=== PATIENT | female | born 1975 | race Caucasian/White ===

== ENCOUNTER 2020-10-07 00:07 | Emergency (ER) | payer OTHER ==
--- NOTE | 2020-10-07 01:09 | ED ---
General Adult HPI - General Chief complaint: Skin/Abscess/Foreign Body Stated complaint: Female Time Seen by Provider: 10/07/20 00:24 Source: patient, RN notes reviewed, old records reviewed Mode of arrival: ambulatory Limitations: no limitations - History of Present Illness Initial comments: 44-year-old female presents to the ER today for evaluation for a rash last weeks between her panus and pain. She reports it's burning overall skin. She reports been trying diaper cream [id number] with no relief. Patient also complains of chronic cough for 3 weeks. She states that she has had no fevers or chills. She reports it keeps her up at night times. She reports she's not follow-up with Dr. diggs if she may be diabetic. She denies any significant weight loss, polydipsia, or polyuria. Denies dysuria. - Related Data Previous Rx's Medication Instructions Recorded Azithromycin [Zithromax] 250 mg PO DIRECTED #6 tab 10/07/20 Fluconazole [Diflucan] 200 mg PO DAILY #7 tab 10/07/20 Nystatin 100,000 Unit/gm Powd 1 applic TOPICAL TID #1 bottle 10/07/20 [Mycostatin Powder] Allergies Allergy/AdvReac Type Severity Reaction Status Date / Time codeine Allergy Rash/Hives Verified 10/07/20 00:17 Penicillins Allergy Rash/Hives Verified 10/07/20 00:17 Review of Systems ROS Statement: Those systems with pertinent positive or pertinent negative responses have been documented in the HPI. ROS Other: All systems not noted in ROS Statement are negative. Past Medical History Past Medical History: Asthma, Fibromyalgia Additional Past Medical History / Comment(s): SVT History of Any Multi-Drug Resistant Organisms: None Reported Past Surgical History: Adenoidectomy, Cholecystectomy, Ear Surgery, Tonsillectomy Additional Past Surgical History / Comment(s): Gastric bypass, D&C Past Psychological History: Anxiety, Depression, PTSD Smoking Status: Current some day smoker Past Alcohol Use History: None Reported Past Drug Use History: None Reported General Exam - General Exam Comments Initial Comments: Alert and oriented 44-year-old female. No distress Limitations: no limitations General appearance: alert, in no apparent distress Head exam: Present: atraumatic, normocephalic, normal inspection Eye exam: Present: normal appearance, PERRL, EOMI. Absent: scleral icterus, conjunctival injection, periorbital swelling ENT exam: Present: normal exam, mucous membranes moist Neck exam: Present: normal inspection. Absent: tenderness, meningismus, lymphadenopathy Respiratory exam: Present: normal lung sounds bilaterally. Absent: respiratory distress, wheezes, rales, rhonchi, stridor Cardiovascular Exam: Present: regular rate, normal rhythm, normal heart sounds. Absent: systolic murmur, diastolic murmur, rubs, gallop, clicks GI/Abdominal exam: Present: soft, normal bowel sounds. Absent: distended, tenderness, guarding, rebound, rigid Extremities exam: Present: normal inspection, full ROM, normal capillary refill, other (Patient has significant bella intertrigo and lower panus and groin.). Absent: tenderness, pedal edema, joint swelling, calf tenderness Back exam: Present: normal inspection Neurological exam: Present: alert, oriented X3, CN II-XII intact Psychiatric exam: Present: normal affect, normal mood Skin exam: Present: warm, dry, intact, normal color. Absent: rash Course Vital Signs 10/07/20 10/07/20 00:11 01:53 Temperature 98.3 F 98.1 F Pulse Rate 75 72 Respiratory 20 16 Rate Blood Pressure 152/82 148/85 O2 Sat by Pulse 100 99 Oximetry Medical Decision Making - Medical Decision Making 44-year-old female presents to the ER today for evaluation for complaints of lanie h in groin revealed. She's had this rash for a few weeks. Patient denies that she'll need oral Diflucan for treatment. Doesn't complain of a chronic cough for the past few weeks as well. Chest x-ray showed questionable opacity perihilar region. Discussed treating the Patient for atypical pneumonia with azithromycin. Advised doing the azithromycin prescription and taking Diflucan. I also advised keeping the areas of skin fold between pannus and groin dry. Discussed using nystatin powder. 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 Disposition Clinical Impression: Cough, Candidiasis, intertriginous Disposition: HOME SELF-CARE Condition: Good Instructions (If sedation given, give patient instructions): Yeast Infection (ED) Additional Instructions: Patient advised to take the antibiotic as prescribed and after this was completed take the oral Diflucan. Keep the area clean and dry and apply the powder to the skin folds. Prescriptions: Fluconazole [Diflucan] 200 mg PO DAILY #7 tab Nystatin 100,000 Unit/gm Powd [Mycostatin Powder] 1 applic TOPICAL TID #1 bottle Azithromycin [Zithromax] 250 mg PO DIRECTED #6 tab Is patient prescribed a controlled substance at d/c from ED?: No Referrals: None,Stated [Primary Care Provider] - 1-2 days Time of Disposition: 01:37
--- NOTE | 2020-10-07 01:15 | XR ---
EXAM: XR Chest, 2 Views CLINICAL HISTORY: ITS.REASON XR Reason: cough TECHNIQUE: Frontal and lateral views of the chest. COMPARISON: No relevant prior studies available. FINDINGS: Lungs: Question subtle perihilar opacities which may be inflammatory or infectious. Pleural space: Unremarkable. Heart: Unremarkable. Mediastinum: Unremarkable. Bones/joints: Unremarkable. IMPRESSION: Question subtle perihilar opacities which may be inflammatory or infectious.
[2020-10-07 01:16] LABS: Glucose,Whole Blood 97 mg/dL (75-99)
[2020-10-07] MEDS ORDERED: AZITHROMYCIN 500 MG TAB PO STA (01:32)
[2020-10-07 01:54] VITALS: BP 148/85; PULSE 72; RESP 16; TEMP 98.1
== END 2020-10-07 01:52 | disposition home or self-care (01) ==
LOC: EC 00:07
DX: B37.9 Candidiasis, unspecified (principal); R05 Cough; F17.200 Nicotine dependence, unspecified, uncomplicated; Z88.0 Allergy status to penicillin; Z88.5 Allergy status to narcotic agent; Z98.84 Bariatric surgery status
CPT/HCPCS: 36415; 71046; 99284

== ENCOUNTER 2020-10-26 00:21 | Emergency (ER) | payer MEDICARE, OTHER ==
[2020-10-26 00:28] VITALS: RESP 18; TEMP 98.2
[2020-10-26] MEDS ORDERED: HYDROmorphone 1 MG/ML 1 ML SYRINGE IM STA (01:05)
[2020-10-26] MEDS ORDERED: IBUPROFEN 800 MG TAB PO STA (01:05)
--- NOTE | 2020-10-26 01:07 | ED ---
Lower Extremity Injury HPI - General Chief Complaint: Extremity Injury, Lower Stated Complaint: Knee pain Time Seen by Provider: 10/26/20 00:24 Source: patient, EMS, RN notes reviewed, old records reviewed Mode of arrival: EMS Limitations: physical limitation - History of Present Illness Initial Comments: This is a 44 year old female to the ED co right knee pain, morbidny obese, no injury, able to ambulate. Patient is complaining of right knee pain. Patient has no fever and history of pain. MD Complaint: knee injury (right) -: days(s) Injury: Knee: Right Type of Injury: blunt Place: home Severity: moderate Severity scale (1-10): 4 Improves With: nothing Worsens With: weight bearing Other Symptoms: loss of consciousness Associated Symptoms: snap/pop sensation Treatments Prior to Arrival: cold therapy - Related Data Previous Rx's Medication Instructions Recorded Azithromycin [Zithromax] 250 mg PO DIRECTED #6 tab 10/07/20 Fluconazole [Diflucan] 200 mg PO DAILY #7 tab 10/07/20 Nystatin 100,000 Unit/gm Powd 1 applic TOPICAL TID #1 bottle 10/07/20 [Mycostatin Powder] Allergies Allergy/AdvReac Type Severity Reaction Status Date / Time codeine Allergy Rash/Hives Verified 10/07/20 00:17 Penicillins Allergy Rash/Hives Verified 10/07/20 00:17 shellfish derived Allergy Rash/Hives Verified 10/26/20 00:30 Review of Systems ROS Statement: Those systems with pertinent positive or pertinent negative responses have been documented in the HPI. ROS Other: All systems not noted in ROS Statement are negative. Past Medical History Past Medical History: Asthma, Fibromyalgia Additional Past Medical History / Comment(s): SVT History of Any Multi-Drug Resistant Organisms: None Reported Past Surgical History: Adenoidectomy, Cholecystectomy, Ear Surgery, Tonsillectomy Additional Past Surgical History / Comment(s): Gastric bypass, D&C Past Psychological History: Anxiety, Depression, PTSD Smoking Status: Current some day smoker Past Alcohol Use History: None Reported Past Drug Use History: None Reported General Exam - General Exam Comments Initial Comments: patient is able to walk Limitations: physical limitation General appearance: alert, in no apparent distress Head exam: Present: atraumatic, normocephalic, normal inspection Eye exam: Present: normal appearance, PERRL, EOMI. Absent: scleral icterus, conjunctival injection, periorbital swelling ENT exam: Present: normal exam, mucous membranes moist Neck exam: Present: normal inspection. Absent: tenderness, meningismus, lymphadenopathy Respiratory exam: Present: normal lung sounds bilaterally. Absent: respiratory distress, wheezes, rales, rhonchi, stridor Cardiovascular Exam: Present: regular rate, normal rhythm, normal heart sounds. Absent: systolic murmur, diastolic murmur, rubs, gallop, clicks GI/Abdominal exam: Present: soft, normal bowel sounds. Absent: distended, tenderness, guarding, rebound, rigid Extremities exam: Present: normal inspection, full ROM, normal capillary refill. Absent: tenderness, pedal edema, joint swelling, calf tenderness Back exam: Present: normal inspection Neurological exam: Present: alert, oriented X3, CN II-XII intact Psychiatric exam: Present: normal affect, normal mood Skin exam: Present: warm, dry, intact, normal color. Absent: rash Course Vital Signs 10/26/20 00:25 Temperature 98.2 F Pulse Rate 81 Respiratory 18 Rate Blood Pressure 151/91 O2 Sat by Pulse 100 Oximetry Medical Decision Making - Medical Decision Making 44 female DF for evaluation right knee pain secondary to osteoarthritis. No injury. X-rays negative patient can be discharged home - Radiology Data Radiology results: report reviewed (X-ray right knee negative for acute dise ase), image reviewed Disposition Clinical Impression: Right knee pain, Osteoarthritis Disposition: ADMITTED IP TO THIS [facility] Condition: Good Instructions (If sedation given, give patient instructions): Knee Pain (ED), Osteoarthritis (ED) Is patient prescribed a controlled substance at d/c from ED?: No Referrals: Jocelyne Canales MD [Primary Care Provider] - 1-2 days
--- NOTE | 2020-10-26 01:34 | XR ---
EXAM: XR Right Knee, 3 Views CLINICAL HISTORY: Pain. TECHNIQUE: Three views of the right knee. COMPARISON: No relevant prior studies available. FINDINGS: Bones/joints: Mild to moderate degenerative spur formation without marked loss of joint space. No evidence of joint effusion. No acute fracture. No dislocation. Soft tissues: Unremarkable. IMPRESSION: No acute findings in the right knee. Mild to moderate degenerative changes.
[2020-10-26] MEDS ORDERED: traMADol 50 MG STARTER PACK 3 TAB BTL PO STA (02:08)
[2020-10-26 02:19] VITALS: BP 166/86; PULSE 80
== END 2020-10-26 02:43 | disposition other institution (70) ==
LOC: SUPCPDRO 00:21 → EC 00:21
DX: M17.11 Unilateral primary osteoarthritis, right knee (principal); F17.200 Nicotine dependence, unspecified, uncomplicated; Z88.0 Allergy status to penicillin; Z88.5 Allergy status to narcotic agent; Z91.013 Allergy to seafood; Z90.49 Acquired absence of other specified parts of digestive tract
CPT/HCPCS: 99285 ×2; 96372 ×2; 73562; J1170

== ENCOUNTER → 2020-12-05 | Outpatient (CLI) | payer MEDICARE, OTHER ==
[2020-12-05 22:48] LABS: Basophils # (A) 0.05 X 10*3/uL (0.00-0.10); Basophils % (A) 0.7 %; Eosinophils # (A) 0.07 X 10*3/uL (0.04-0.35); HCT 39.7 % (37.2-46.3); HGB 12.2 g/dL (12.0-15.0); Lymphocytes # (A) 1.46 X 10*3/uL (0.90-5.00); Lymphocytes % (A) 20.4 %; MCH 28.9 pg (27.0-32.0); MCHC 30.7 g/dL (32.0-37.0); MCV 94.1 fL (80.0-97.0); Mean Platelet Volume 10.3 fL (9.5-12.2); Monocytes % (A) 9.8 %; Neutrophils # (A) 4.87 X 10*3/uL (1.80-7.70); Neutrophils % (A) 67.8 %; Platelet Count 396 X 10*3/uL (140-440); RBC 4.22 X 10*6/uL (4.10-5.20); RDW 13.2 % (11.5-14.5); WBC 7.17 X 10*3/uL (4.50-10.00)
[2020-12-06 02:04] LABS: Erythrocyte Sedimentation Rate 44 mm/Hr (0-20)
[2020-12-06 04:11] LABS: African American GFR (CKD) 78.8 (60.0-200.0); Albumin 4.6 g/dL (3.80-4.90); Albumin/Globulin Ratio 2.19 (1.60-3.17); C Reactive Protein 0.5 mg/dL (0.0-0.8); Calcium 9.1 mg/dL (8.7-10.3); Globulin 2.1 g/dL (1.6-3.3); Potassium 3.9 mmol/L (3.5-5.5); Total Bilirubin 0.3 mg/dL (0.2-1.2); Total Protein 6.7 g/dL (6.2-8.2)
== END | disposition home or self-care (01) ==
LOC: LABWHC1 15:54
PROVIDERS: ATTEND Nurse Practitioner
DX: Z09 Encounter for follow-up examination after completed treatment for conditions other than malignant neoplasm (principal); Z87.19 Personal history of other diseases of the digestive system
CPT/HCPCS: 36415; 80053; 85025; 85652; 86140

== ENCOUNTER 2020-12-12 08:44 | Day surgery (SDC) | payer MEDICARE, OTHER ==
[2020-12-08 11:23] VITALS: BMI 48.2
[~2020-12-12 08:44] MED LIST: LACTATED RINGERS 1,000 ML IV SCH
[2020-12-12 09:16] VITALS: TEMP 97.7
[2020-12-12] MEDS ORDERED: LIDOCAINE 1% (10MG/ML) FOR IV START INTRADERMA ONE (09:20)
[2020-12-12] MEDS ORDERED: PROPOFOL 10 MG/ML 20 ML VIAL IV ONE (09:55)
--- NOTE | 2020-12-12 10:35 | P.PCN ---
Date of Procedure: 12/12/20 Description of Procedure: BRIEF HISTORY: Patient is a 45-year-old female presenting for outpatient colonoscopy for evaluation of a history of ulcerative colitis/personal diseases of the digestive system. She reports prior history of ulcerative colitis treated with mesalamine therapy. She's not been on any maintenance medication since 2019 due to lack of insurance. Last colonoscopy in . Denies any rectal bleeding or change in bowel habits. PROCEDURE PERFORMED: Colonoscopy with biopsy and polypectomy. PREOPERATIVE DIAGNOSIS: History of ulcerative colitis, personal history of diseases of the digestive tract, last colonoscopy . ESTIMATED BLOOD LOSS: Minimal. IV sedation per Anesthesia. PROCEDURE: After informed consent was obtained, the patient, was brought into the endoscopy unit. IV sedation was administered by Anesthesia under continuous monitoring. Digital rectal examination was normal. Initially the Olympus CF-190 flexible video colonoscope was then inserted in the rectum, gradually advanced into the cecum without any difficulty. Careful examination was performed as the scope was gradually being withdrawn. Ileocecal valve and the appendiceal orifice were visualized and appeared normal. Prep was excellent. Mucosa of the cecum, ascending colon, transverse colon, descending colon, sigmoid colon, and rectum appeared normal and a normal-appearing terminal ileum with random biopsies taken of the terminal ileum, right colon, transverse colon, left colon and rectum. A diminutive 3 mm polyp removed from the transverse colon with cold forcep polypectomy. Retroflexion was performed in the rectum and no lesions were seen, low-grade internal hemorrhoids. The patient tolerated the procedure well. IMPRESSION: Normal-appearing colon from rectum to cecum and normal-appearing terminal ileum with random biopsies taken of the terminal ileum, right colon, transverse colon, left colon and rectum. Diminutive 3 mm transverse colon polyp removed with cold forcep polypectomy. Internal hemorrhoids. RECOMMENDATIONS: Findings of this examination were discussed with the patient and her family. Okay to resume diet. Okay to resume medications. Await pathology from biopsies and polypectomy. Patient should follow-up in the clinic in the next 1-2 weeks for results of biopsies. Recommend repeat colonoscopy in 7 years for colon polyp pending pathology from polypectomy.
[2020-12-12 11:07] VITALS: BP 137/81; PULSE 62; RESP 18
== END 2020-12-12 11:30 | disposition home or self-care (01) ==
LOC: ORWHC2ENDO 08:44
PROVIDERS: ATTEND Internal Medicine
DX: D12.3 Benign neoplasm of transverse colon (principal); K51.90 Ulcerative colitis, unspecified, without complications; K64.8 Other hemorrhoids; J45.909 Unspecified asthma, uncomplicated; M79.7 Fibromyalgia; Z72.0 Tobacco use; Z90.49 Acquired absence of other specified parts of digestive tract; Z90.89 Acquired absence of other organs; Z98.890 Other specified postprocedural states; Z79.899 Other long term (current) drug therapy; Z88.5 Allergy status to narcotic agent; Z88.0 Allergy status to penicillin; Z91.013 Allergy to seafood; Z91.09 Other allergy status, other than to drugs and biological substances
CPT/HCPCS: 81025; 88305; 45380; J2704

== ENCOUNTER → 2020-12-27 | Outpatient (CLI) | payer MEDICARE, OTHER ==
--- NOTE | 2020-12-27 12:31 | MR ---
EXAMINATION TYPE: MR brain wo/w con DATE OF EXAM: 12/27/2020 COMPARISON: NONE HISTORY: Pseudotumor. Papilledema both eyes, pseudo tumor cerebri. Abnormal physical exam by ophthalm ologist. TECHNIQUE: Multiplanar, multisequence images of the brain and brainstem is performed without and with IV contras t, utilizing 13.5 mL intravenous Gadavist . FINDINGS: Diffusion weighted images demonstrate no evidence of a recent infarct or other diffusion ab normality. There is mild generalized atrophy over the bilateral frontal and temporal lobes. No hydro cephalus. There are scattered foci of T2 hyperintensity seen throughout the white matter bilaterally. Roughly 20-25 lesions are present. Lesions are nonspecific in appearance and distribution. T2 Star w eighted images show no suspicious intraparenchymal blood product. Midline structures demonstrate normal morphology. The craniocervical junction appears within normal limits. Post contrast images demonstrate no abnormal enhancement. The dural venous sinuses appear pa tent. The visualized sinuses are clear. Symmetric CSF prominence surrounding the optic nerves in the bilateral orbits. The globes are intact bilaterally. IMPRESSION: Symmetric mild surrounding CSF prominence in the optic nerves. No additional MRI findings to suggest pseudotumor cerebri. Mild bilateral frontal and temporal lobe atrophy. Mild to borderline moderate nonspecific white matter changes. No suspicious enhancement.
== END | disposition home or self-care (01) ==
LOC: RADMRIMAIN 10:06
PROVIDERS: ATTEND Ophthalmology
DX: G31.89 Other specified degenerative diseases of nervous system (principal); R90.82 White matter disease, unspecified
CPT/HCPCS: 70553; A9585

== ENCOUNTER 2021-02-06 13:03 | Emergency (ER) | payer MEDICARE, OTHER ==
[2021-02-06 13:13] VITALS: RESP 18
--- NOTE | 2021-02-06 13:14 | ED ---
General Adult HPI - General Source: patient, RN notes reviewed Mode of arrival: ambulatory Limitations: no limitations <David Kendall - Last Filed: 02/06/21 13:11> <Michael Ordonez - Last Filed: 02/06/21 16:42> - General Stated complaint: SOB, cough Time Seen by Provider: 02/06/21 13:11 - History of Present Illness Initial comments: 45-year-old female presents with with chief complaint of shortness of breath cough congestion. Patient states she has not felt well. States that she's had fever cough congestion. Patient states that he has mild nasal congestion. Patient was recently diagnosed with pseudotumor cerebri. Patient states that she's had pain is not out of the usual. Patient had hot and cold flashes. (David Kendall) This is a 45-year-old female presents emergency Department with complaint of cough and fever. Patient states she had a fever starting on the but did not have any symptoms in but since then she's had a bit of a cough and some congestion and complains of a little bit short of breath if she exerts herself. Patient denies any diarrhea. Patient denies any chest pain or palpitations. Patient denies any abdominal pain patient denies nausea vomiting diarrhea. (Michael Ordonez) - Related Data Home Medications Medication Instructions Recorded Confirmed Albuterol Inhaler [Ventolin Hfa 2 puff INHALATION Q4-6H PRN 12/08/20 12/12/20 Inhaler] Ergocalciferol (Vitamin D2) 1,250 mcg PO HUYNH 12/08/20 12/12/20 [Vitamin D2 (50,000 Iu)] Allergies Allergy/AdvReac Type Severity Reaction Status Date / Time adhesive tape Allergy Rash/Hives Verified 02/06/21 13:09 codeine Allergy Rash/Hives Verified 02/06/21 13:09 Penicillins Allergy Rash/Hives Verified 02/06/21 13:09 shellfish derived Allergy Rash/Hives Verified 02/06/21 13:09 Review of Systems ROS Other: All systems not noted in ROS Statement are negative. <David Kendall - Last Filed: 02/06/21 13:11> ROS Other: All systems not noted in ROS Statement are negative. <Michael Ordonez - Last Filed: 02/06/21 16:42> ROS Statement: Those systems with pertinent positive or pertinent negative responses have been documented in the HPI. Past Medical History Past Medical History: Asthma, Fibromyalgia Additional Past Medical History / Comment(s): SVT History of Any Multi-Drug Resistant Organisms: None Reported Past Surgical History: Adenoidectomy, Cholecystectomy, Ear Surgery, T onsillectomy Additional Past Surgical History / Comment(s): Gastric bypass, D&C Smoking Status: Current some day smoker <David Kendall - Last Filed: 02/06/21 13:11> General Exam General appearance: alert, in no apparent distress Head exam: Present: atraumatic, normocephalic, normal inspection Eye exam: Present: normal appearance, PERRL, EOMI. Absent: scleral icterus, conjunctival injection, periorbital swelling ENT exam: Present: normal exam, normal oropharynx, mucous membranes moist Respiratory exam: Present: normal lung sounds bilaterally. Absent: respiratory distress, wheezes, rales, rhonchi, stridor Cardiovascular Exam: Present: regular rate, normal rhythm, normal heart sounds. Absent: systolic murmur, diastolic murmur, rubs, gallop, clicks <David Kendall - Last Filed: 02/06/21 13:11> <Michael Ordonez - Last Filed: 02/06/21 16:42> - General Exam Comments Initial Comments: GENERAL: Patient is well-developed and well-nourished. Patient is nontoxic and well- hydrated and is in mild distress. ENT: Neck is soft and supple. No significant lymphadenopathy is noted. Oropharynx is clear. Moist mucous membranes. Neck has full range of motion without eliciting any pain. EYES: The sclera were anicteric and conjunctiva were pink and moist. Extraocular movements were intact and pupils were equal round and reactive to light. Eyelids were unremarkable. PULMONARY: Unlabored respirations. Good breath sounds bilaterally. No audible rales rhonchi or wheezing was noted. CARDIOVASCULAR: There is a regular rate and rhythm without any murmurs gallops or rubs. ABDOMEN: Soft and nontender with normal bowel sounds. SKIN: Skin is clear with no lesions or rashes and otherwise unremarkable. NEUROLOGIC: Patient is alert and oriented x3. Cranial nerves II through XII are grossly intact. Motor and sensory are also intact. Normal speech, volume and content. Symmetrical smile. MUSCULOSKELETAL: Normal extremities with adequate strength and full range of motion. LYMPHATICS: No significant lymphadenopathy is noted PSYCHIATRIC: Normal psychiatric evaluation. (Michael Ordonez) Course Vital Signs 02/06/21 13:10 Temperature 98.5 F Pulse Rate 89 Respiratory 18 Rate Blood Pressure 111/72 O2 Sat by Pulse 95 Oximetry Medical Decision Making <Michael Ordonez - Last Filed: 02/06/21 16:42> - Medical Decision Making Patient is COVID positive. Patient will receive monoclonal antibodies (Michael Ordonez) - Lab Data Lab Results 02/06/21 Range/Units 13:25 Coronavirus (PCR) Detected A (Not Detectd) Disposition <David Kendall - Last Filed: 02/06/21 13:11> Is patient prescribed a controlled substance at d/c from ED?: No Time of Disposition: 16:42 <Michael Ordonez - Last Filed: 02/06/21 16:42> Clinical Impression: COVID-19 Disposition: HOME SELF-CARE Instructions (If sedation given, give patient instructions): Coronavirus Disease 2019 (COVID-19) Referrals: Jocelyne Canales MD [Primary Care Provider] - 1-2 days
[2021-02-06] MEDS ORDERED: SODIUM CHLORIDE 0.9% 50 ML IVPB ONE (17:15)
[2021-02-06] MEDS ORDERED: BAMLANIVIMAB (EUA) 700 MG, ETESEVIMAB (EUA) 1,400 MG in SODIUM CHLORIDE 0.9% 50 ML IVPB ONE (17:30)
[2021-02-06] MEDS ORDERED: ACETAMINOPHEN TAB 325 MG TAB PO STA (17:37)
[2021-02-06 19:14] VITALS: BP 127/78; PULSE 93; TEMP 98.8
== END 2021-02-06 19:14 | disposition home or self-care (01) ==
LOC: EC 13:03
DX: U07.1 COVID-19 (principal); J45.909 Unspecified asthma, uncomplicated; F17.200 Nicotine dependence, unspecified, uncomplicated; Z88.0 Allergy status to penicillin
CPT/HCPCS: 87635; 99284; 96374; Q0245